=== PATIENT | male | born 2000 | race Caucasian/White ===

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

== ENCOUNTER 2022-05-06 22:36 | Emergency (ER) | payer OTHER, SELFPAY ==
[2022-05-06] VITALS (12 sets, daily range): BP systolic 138–149; BP diastolic 70–82; PULSE 85–113; RESP 12–23; TEMP 37.6; O2SAT 97–100
--- NOTE | 2022-05-06 22:45 | DI.CT_ITS ---
Exam(s) CT CHEST/ABD/PEL W EXAM: CT CHEST/ABD/PEL W CLINICAL HISTORY: trauma, sledding accident, firm abdomen, back pain. TECHNIQUE: Imaging Protocol: Axial computed tomography images with coronal and sagittal reformatted images were created and reviewed CONTRAST MATERIAL: Intravenous: Omnipaque 350 Contrast volume:100 ml Oral: None COMPARISON: No exams were available for comparison FINDINGS: CHEST: LUNGS: No evidence of lung contusion or pneumothorax nor pleural effusion. No confluent infiltrates. No incidental nodules.. MEDIASTINUM: No evidence of sternal fracture nor mediastinal hematoma. There is no hilar nor mediast inal adenopathy. Visualized thyroid unremarkable. CARDIAC: Heart size is normal. There is no pericardial effusion.Caliber of the thoracic aorta is wit hin normal limits. No evidence of aortic trauma nor dissection. OSSEOUS: No significant osseous lesions.No fractures of the sternum and ribs. No clavicle fractures. . ABDOMEN: There is a wedge compression fracture of L1. See separate lumbar spine CT report No prominent paraspinal hematoma evident. No prominent canal stenosis evident this level. There is no ascites. No evidence of mesenteric nor bowel wall hematoma. LIVER: There are no focal hepatic lesions nor dilatation of intrahepatic ducts. No a patent lacerati on. GALLBLADDER/BILIARY: No obvious gallbladder pathology. CBD is not dilated. PANCREAS: No evidence of pancreatic mass nor dilatation of the pancreatic duct. SPLEEN: Spleen is not enlarged. There are no intrasplenic lesions. No splenic laceration. Splenic a nd portal veins are patent. ADRENALS: There are no significant adrenal masses. KIDNEYS: No evidence of renal laceration nor subcapsular hematoma nor other significant focal finding s in either kidney.. ABDOMINAL AORTA: Appears unremarkable. Normal size. No evidence of trauma. No dissection. No athe rosclerotic involvement. Aortoiliac segments and common femoral arteries are patent. LYMPH NODES: There is no retroperitoneal nor paraaortic adenopathy. ABDOMINAL WALL: No evidence of significant anterior abdominal wall nor inguinal hernia. GI: There is no evidence of bowel obstruction.No evidence of bowel wall hematoma. PELVIS: LYMPH NODES: There is no intrapelvic nor inguinal adenopathy. GI: No evidence of appendicitis.No evidence of sigmoid diverticulitis. URINARY BLADDER: Intact. Mildly distended. No extravasation. REPRODUCTIVE: Prostate unremarkable. OSSEOUS: Wedge compression fracture of L1 as described on the dedicated CT spine report. There does not appear to be tight spinal canal stenosis at this level. No other fractures identified. IMPRESSION: 1. L1 wedge compression fracture. See separate report CT lumbar spine. 2. No other significant trauma sequelae in the chest, abdomen, and pelvis. RADIATION DOSE DELIVERED: 1084.2 mGy.cm Total DLP DATA REPOSITORY: All CT scans at this facility are submitted to the National Radiology Data Registry (NRDR) Dose Index Registry (DIR) with the [employer] ([employer]). RADIATION OPTIMIZATION: All CT scans at this facility use at least one of these dose optimization te chniques: automated exposure control; mA and/or kV adjustment per patient size (includes targeted exa ms where dose is matched to clinical indication); or iterative reconstruction.
--- NOTE | 2022-05-06 22:45 | DI.CT_ITS ---
Exam(s) CT CERVICAL SPINE WO EXAM: CT CERVICAL SPINE WO CLINICAL HISTORY: trauma, low back pain. TECHNIQUE: Imaging Protocol: Axial computed tomography images with coronal and sagittal reformatted images were created and reviewed COMPARISON: No exams were available for comparison FINDINGS: CERVICAL SPINE: There is no evidence of fracture nor listhesis. No significant prevertebral soft tissue swelling. There is no significant facet joint malalignment. No significant osseous lesions evident. IMPRESSION: No evidence of cervical spine fracture, malalignment, nor acute compromise of the cervical spinal can al. RADIATION DOSE DELIVERED: 303.9mGy.cm Total DLP DATA REPOSITORY: All CT scans at this facility are submitted to the National Radiology Data Registry (NRDR) Dose Index Registry (DIR) with the [employer] ([employer]). RADIATION OPTIMIZATION: All CT scans at this facility use at least one of these dose optimization te chniques: automated exposure control; mA and/or kV adjustment per patient size (includes targeted exa ms where dose is matched to clinical indication); or iterative reconstruction.
--- NOTE | 2022-05-06 22:52 | DI.CT_ITS ---
Exam(s) CT THORACIC LUMBAR SPINE REC EXAM: CT THORACIC LUMBAR SPINE REC CLINICAL HISTORY: trauma, low thoracic and lumbar ttp TECHNIQUE: COMPARISON: CT CT CHEST/ABD/PEL W from 05/06/2022 FINDINGS: THORACIC SPINAL COLUMN: There are no fractures of the thoracic vertebrae. No prominent disc space na rrowing nor listhesis. No facet malalignment. No osseous lesions. LUMBOSACRAL SPINAL COLUMN: There is an acute appearing wedge compression fracture of L1 with thumb ap proximately 30 percent height loss. Fracture does not extend into the pedicles and posterior osseous elements. There is mild retropulsion of the posterior superior cortex by approximately 2 millimeter s. No prominent spinal canal compromise. No facet malalignment. No other vertebral fractures. No listhesis. Disc spaces unremarkable. IMPRESSION: 1. Wedge compression fracture of L1 is described above. Mild retropulsion of the posterior cortex, a pproximately 2 millimeters. 2. No fractures in the thoracic spinal column vertebrae
--- NOTE | 2022-05-06 22:59 | ED.GENADUL_ITS ---
Discharge Plan Discharge Details Chief Complaint: Trauma Primary Care Provider: Leticia Callejas ED Provider: Jaspreet Horton Home Meds and New Rx's Prescriptions: No Action albuterol sulfate [Ventolin HFA] 8 GM HFA aerosol inhaler 200 puff Inhalation Q4H PRN PRN epinephrine [EpiPen 2-Byorn] 0.3 mg/0.3 mL Auto-Injector 0.3 mg IM ONCE epinephrine 0.3 mg/0.3 mL auto-injector 0.3 ml IM ONCE PRN (Reason: anaphylaxis) Qty: 2 0RF Rx Instructions: as a single dose; may repeat once Medical Decision Making 22-year-old male for sling accident with what sounds like direct trauma to low midline spine. Patient mentating well, he not lose consciousness and has no headache. Patient is hemodynamically stable. Airway intact. He has midline focal tenderness low thoracic and upper lumbar spine. Concern for fracture of the spine. Patient also with a rigid and somewhat tender abdomen. Consider intra- abdominal surgical process. Plan to obtain CT imaging of the cervical, thoracic and lumbar spine. Also CT of the chest abdomen pelvis to assess for traumatic injury. HPI General Mode of arrival: ambulatory . Date/Time Provider Initiated Documentation: 05/06/22 22:52 . Limitations to Documentation: no limitations . Information obtained by: patient . HPI Narrative: 22-year-old male presents with chief complaint of low back pain. Patient notes he was on a sled and fell off and landed on a ice mound. Pain is severe and localized to midline back. Pain worse with certain positions. No associated numbness or weakness. Patient denies chest pain. He does note some abdominal pain. No bowel or bladder dysfunction. Related Data Home Medications Medication Instructions Recorded Confirmed albuterol sulfate 90 mcg/actuation 200 puff inhalation Q4H PRN PRN 01/22/17 05/06/22 aerosol inhaler (Ventolin HFA) epinephrine 0.3 mg/0.3 mL 0.3 ml IM ONCE PRN anaphylaxis #2 12/24/19 05/06/22 injection, auto-injector ea epinephrine 0.3 mg/0.3 mL 0.3 mg IM ONCE 12/24/19 05/06/22 injection, auto-injector (EpiPen 2-Byron) Previous Rx's Medication Instructions Recorded epinephrine 0.3 mg/0.3 mL 0.3 ml IM ONCE PRN anaphylaxis #2 12/24/19 injection, auto-injector ea Allergies Allergy/AdvReac Type Severity Reaction Status Date / Time tree nut Allergy Unverified 05/06/22 22:54 General Stated Complaint: Trauma JESSICA: 2 PFSH All Active Problems Anterior open bite (Acute) Maxillary hypoplasia (Acute) Medical History No significant past medical history Surgical History H/O wisdom tooth extraction Social History Smoking/Tobacco Use Status: Never Smoking risk assessment performed?: Yes Alcohol Intake: never Drug use: Socially Substance use type: marijuana Do you feel safe at home: Yes Do you feel safe in your relationship?: Yes Exam Const General: cooperative HENMT Head: normocephalic and atraumatic Mouth: moist mucous membranes Eyes EOM: EOM intact bilaterally Neck Neck: trachea midline and supple Resp Auscultation: clear to auscultation bilaterally, no rales, no rhonchi and no wheezes Cardio Rate: regular rate and not tachycardic Rhythm: regular rhythm GI Palpation: firm, no guarding, no masses and tender in the LLQ Back/Spine/Pelvis Cervical Spine: No cervical spinal tenderness and No step off deformity Thoracic/Lumbar Spine: thoracic spinal tenderness (low) and lumbar spinal tenderness Skin General skin exam: no rashes or lesions noted Neuro General: patient alert, patient awake, patient oriented x3 and tone normal Cognition: normal cognition Speech: speech normal Motor: strength 5/5 throughout Sensory Exam: no sensory deficits noted Other: no saddle anesth Extrem General: no edema Psych Appearance: grossly normal Mental Status: mental status grossly normal Speech and Movement: speech and movement normal Course Vital Signs Vital signs: Vital Signs Temperature 37.6 C H 05/06/22 22:46 Pulse 93 H 05/06/22 22:46 Respiratory Rate 16 05/06/22 22:46 Blood Pressure 149/82 H 05/06/22 22:46 Pulse Oximetry 100 05/06/22 22:46 Temperature 37.6 C H 05/06/22 22:46 Temperature Source Temporal Artery Scan 05/06/22 22:46 Pulse 93 H 05/06/22 22:46 Respiratory Rate 16 05/06/22 22:46 Respiratory Effort Non-Labored 05/06/22 22:57 Respiratory Depth Normal 05/06/22 22:57 Blood Pressure 149/82 H 05/06/22 22:46 Blood Pressure Position Supine 05/06/22 22:46 Pulse Oximetry 100 05/06/22 22:46 Oxygen Delivery Method Room Air 05/06/22 22:46 Oxygen Flow Rate 0 05/06/22 22:46 Pain Level 6 05/06/22 22:46
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
[2022-05-06] MEDS: Omnipaque 350 MG/ML 100 ML BTL IJ (23:51)
[2022-05-06] MEDS: Normal Saline - Diluent 50 ML VIAL IJ (23:52)
--- NOTE | 2022-05-06 23:54 | DI.VRAD_ITS ---
PROCEDURE INFORMATION: Exam: CT Cervical Spine Without Contrast Exam date and time: 05/06/2022 11:40 PM Age: 22 years old Clinical indication: Injury or trauma; Other: Trauma, low back pain; Blunt trauma and concussion/head injury; Prior surgery; Surgery date: 6+ months; Surgery type: Jaw surgery last year TECHNIQUE: Imaging protocol: Computed tomography of the cervical spine without contrast. Radiation optimization: All CT scans at this facility use at least one of these dose optimization techniques: automated exposure control; mA and/or kV adjustment per patient size (includes targeted exams where dose is matched to clinical indication); or iterative reconstruction. COMPARISON: No relevant prior studies available. FINDINGS: Bones/joints: No acute fracture. Normal alignment. No significant disc protrusion. No severe spinal canal stenosis. Lungs: Minimal patchy airspace opacity noted in the right upper lobe. Soft tissues: Unremarkable. IMPRESSION: No evidence for acute posttraumatic abnormality. Dictated and Authenticated by: Danielle Ro MD. Ordering:BUD Vogel MD
[2022-05-07] VITALS (14 sets, daily range): BP systolic 108–136; BP diastolic 68–73; PULSE 62–98; RESP 15–29; TEMP 36.8; O2SAT 96–100
[2022-05-07] MEDS: Normal Saline 500 ML IV (00:10)
[2022-05-07] MEDS: ACETAMINOPHEN 1,000 MG/100 ML BTL 400 MG IVPB (00:18)
--- NOTE | 2022-05-07 00:19 | DI.VRAD_ITS ---
Addendum created by Danielle Ro MD on 05/07/2022 12:20:33 AM EST: I discussed case findings with Dr Fitch 05/07/2022 12:19 AM EST. Initial report created on 05/07/2022 12:17:24 AM EST: PROCEDURE INFORMATION: Exam: CT Chest With Contrast; Diagnostic Exam date and time: 05/06/2022 11:42 PM Age: 22 years old Clinical indication: Injury or trauma; Other: Trauma, low back pain; Generalized; Blunt trauma (contusions or hematomas) TECHNIQUE: Imaging protocol: Diagnostic computed tomography of the chest with contrast. Radiation optimization: All CT scans at this facility use at least one of these dose optimization techniques: automated exposure control; mA and/or kV adjustment per patient size (includes targeted exams where dose is matched to clinical indication); or iterative reconstruction. Contrast material: OMNI 350; Contrast volume: 100 ml; Contrast route: INTRAVENOUS (IV); COMPARISON: CT CERVICAL SPINE WO 05/06/2022 11:40 PM FINDINGS: Lungs: Unremarkable. No consolidation. No masses. Pleural spaces: Unremarkable. No pneumothorax. No pleural effusion. Heart: Unremarkable. No cardiomegaly. No pericardial effusion. Lymph nodes: Unremarkable. No enlarged lymph nodes. Vasculature: Unremarkable. No aortic aneurysm. Bones/joints: Unremarkable. No acute fracture. Soft tissues: Unremarkable. IMPRESSION: No evidence for acute posttraumatic abnormality in the chest. PROCEDURE INFORMATION: Exam: CT Abdomen And Pelvis With Contrast Exam date and time: 05/06/2022 11:42 PM Age: 22 years old Clinical indication: Injury or trauma; Other: Trauma, low back pain; Generalized; Blunt trauma (contusions or hematomas) TECHNIQUE: Imaging protocol: Computed tomography of the abdomen and pelvis with contrast. Radiation optimization: All CT scans at this facility use at least one of these dose optimization techniques: automated exposure control; mA and/or kV adjustment per patient size (includes targeted exams where dose is matched to clinical indication); or iterative reconstruction. Contrast material: OMNI 350; Contrast volume: 100 ml; Contrast route: INTRAVENOUS (IV); COMPARISON: No relevant prior studies available. FINDINGS: Liver: Normal. No mass. Gallbladder and bile ducts: Normal. No calcified stones. No ductal dilation. Pancreas: Normal. No ductal dilation. Spleen: Normal. No splenomegaly. Adrenal glands: Normal. No mass. Kidneys and ureters: Normal. No hydronephrosis. Stomach and bowel: Unremarkable. No obstruction. No mucosal thickening. Appendix: No evidence of appendicitis. Intraperitoneal space: Unremarkable. No free air. No significant fluid collection. Vasculature: Unremarkable. No abdominal aortic aneurysm. Lymph nodes: Unremarkable. No enlarged lymph nodes. Urinary bladder: Unremarkable as visualized. Reproductive: Unremarkable as visualized. Bones/joints: There is an acute appearing L1 compression fracture with minimal retropulsion. There is approximately 30% loss of vertebral body height. No stenosis. No additional acute fractures seen. Soft tissues: Unremarkable. IMPRESSION: Acute appearing L1 compression fracture. No stenosis. Dictated and Authenticated by: Danielle Ro MD. Ordering:BUD Vogel MD
[2022-05-07] MEDS: HYDROmorphone 2 MG/ML SYR 0.5 MG IVP (00:20)
--- NOTE | 2022-05-07 00:20 | DI.VRAD_ITS ---
Addendum created by Danielle Ro MD on 05/07/2022 12:21:06 AM EST: I discussed case findings with Dr Fitch 05/07/2022 12:20 AM EST. Initial report created on 05/07/2022 12:19:35 AM EST: PROCEDURE INFORMATION: Exam: CT Thoracic Spine Without Contrast Exam date and time: 05/06/2022 11:42 PM Age: 22 years old Clinical indication: Injury or trauma; Other: Trauma, low back pain; Blunt trauma (contusions or hematomas) TECHNIQUE: Imaging protocol: Computed tomography of the thoracic spine without contrast. Radiation optimization: All CT scans at this facility use at least one of these dose optimization techniques: automated exposure control; mA and/or kV adjustment per patient size (includes targeted exams where dose is matched to clinical indication); or iterative reconstruction. COMPARISON: CT CERVICAL SPINE WO 05/06/2022 11:40 PM FINDINGS: Bones/joints: No acute fracture. Normal alignment. No significant disc protrusion. No severe spinal canal stenosis. Soft tissues: Unremarkable. IMPRESSION: No evidence for acute posttraumatic abnormality. PROCEDURE INFORMATION: Exam: CT Lumbar Spine Without Contrast Exam date and time: 05/06/2022 11:42 PM Age: 22 years old Clinical indication: Injury or trauma; Other: Trauma, low back pain; Blunt trauma (contusions or hematomas) TECHNIQUE: Imaging protocol: Computed tomography of the lumbar spine without contrast. Radiation optimization: All CT scans at this facility use at least one of these dose optimization techniques: automated exposure control; mA and/or kV adjustment per patient size (includes targeted exams where dose is matched to clinical indication); or iterative reconstruction. COMPARISON: No relevant prior studies available. FINDINGS: Bones/joints: No acute fracture. Normal alignment. No significant disc protrusion. No severe spinal canal stenosis. Soft tissues: Unremarkable. IMPRESSION: Acute appearing wedge-shaped L1 compression fracture. No stenosis. Dictated and Authenticated by: Danielle Ro MD. Ordering:BUD Vogel MD
[2022-05-07] MEDS: Ondansetron 4 MG/2 ML VIAL IVP (00:21)
--- NOTE | 2022-05-07 00:45 | DI.RAD_ITS ---
Exam(s) XR LUMBAR SPINE COMPLETE EXAM: XR LUMBAR SPINE COMPLETE CLINICAL HISTORY: AP/Lateral/Oblique - STANDING XRAYS ONLY. TECHNIQUE: 2D digital imaging was performed. COMPARISON: No exams were available for comparison FINDINGS: Four views: There is compression fracture of L1, wedge-shaped, with approximately 50 percent height loss. The canales perior aspect of the posterior cortex of this vertebral body is posteriorly retropulsed approximately 2 millimeters. There are no other fractures. No listhesis. Disc space is not narrowed. Facet joints unremarkable. SI joints unremarkable. Contrast is seen in the kidneys ureters and bladder. No hydronephrosis. IMPRESSION: Acute compression fracture of L1 with approximately 50 percent height loss and mild posterior cortex retropulsion. DATA REPOSITORY: RADIATION DOSE DELIVERED:
[2022-05-07 01:41] LABS: Abs Immature Grans 0.11 10^3/uL (0.0-0.06); Absolute Basophil Count 0.05 10^3/uL (0.0-0.2); Absolute Eosinophil Count 0.38 10^3/uL (0.0-0.7); Absolute Monocyte Count 1.01 10^3/uL (0.1-0.8); Basophils % 0.3; Eosinophils % 2.3; HCT 40.1 % (40.0-50.0); HGB 13.9 g/dL (13.5-17.5); Immature Grans % 0.7; MCH 30.2 pg (27.0-33.0); MCHC 34.7 % (32.0-36.0); MCV 87 fL (80-95); MPV 10.3 fL (8.0-11.0); Monocytes % 6.1; Neutrophils % 75.6; Platelet Count 202 10^3/uL (130-400); RDW 11.8 % (11.8-14.1); RDW-SD 37.8 fL; WBC 16.57 10^3/uL (4.4-10.8)
[2022-05-07 01:42] LABS: Absolute Lymphocyte Count 2.49 10^3/uL (1.2-3.4); Absolute Neutrophil Count 12.53 10^3/uL (1.2-6.7)
--- NOTE | 2022-05-07 01:55 | DI.VRAD_ITS ---
PROCEDURE INFORMATION: Exam: XR Lumbosacral Spine Exam date and time: 05/07/2022 12:57 AM Age: 22 years old Clinical indication: Abnormal findings; Abnormal xray or scan of thoracolumbar spine; Additional info: To assess stability of l1 fracture TECHNIQUE: Imaging protocol: Radiologic exam of the lumbosacral spine. Views: 4 or 5 views. COMPARISON: CT THORACIC LUMBAR SPINE REC 05/06/2022 11:42 PM FINDINGS: Bones/joints: A wedge-shaped compression fracture is seen within the L1 vertebral body resulting in 50-60% vertebral body height loss. Minimal, 1-2 mm, retropulsion. Otherwise, no additional fracture is seen within the lumbar spine. Soft tissues: Unremarkable. IMPRESSION: Acute compression fracture within the L1 vertebral body resulting in 50-60% vertebral body height loss and minimal, 1-2 mm, retropulsion. Dictated and Authenticated by: Tari Beach MD. Ordering:JESSICA Snyder MD
[2022-05-07 01:57] LABS: ALT 18 U/L (16-63); AST 24 U/L (15-37); Albumin 4.1 g/dL (3.4-5.0); Alkaline Phosphatase 66 U/L (46-116); Anion Gap 7.7 mmol/L (3-11); BUN 12 mg/dL (7-18); Bilirubin, Total 0.5 mg/dL (0.2-1.0); CO2 27.3 mmol/L (21.0-32.0); CREATININE 1.1 mg/dL (0.70-1.30); Calcium 8.5 mg/dL (8.5-10.1); Chloride 104 mmol/L (98-107); Estimated GFR 98.56 (mL/min/1.73m2); Glucose 104 mg/dL (74-106); Potassium 3.9 mmol/L (3.5-5.1); Sodium 139 mmol/L (136-145); Total Protein 7.2 g/dL (6.4-8.2)
[2022-05-07] MEDS: Ketorolac 30 MG/ML VIAL IVP (01:59)
[2022-05-07] MEDS: Ondansetron O.D.T. 4 MG TABEF, 3 TABS/BTL 12 MG (07:04)
--- NOTE | 2022-05-07 09:33 | PDOC.ERCMACT ---
- If Service Date Differs Date of service: 05/07/22 Time of Service: 09:33 Care Management Activity Note Sj is seen in the ED for an L1 compression fracture. At the request of ED provider, CM coordinates a referral to [facility] Neurosurgery to assist Sj in obtaining an appointment for further evaluation and treatment. A referral has also been made to ortho by the ED.
== END 2022-05-07 07:10 | disposition home or self-care (01) ==
PROVIDERS: Student in an Organized Health Care Education/Training Program; Emergency Provider Physician Assistant; PCP Family Medicine
DX: S32.019A Unspecified fracture of first lumbar vertebra, initial encounter for closed fracture (principal); W00.0XXA Fall on same level due to ice and snow, initial encounter; Y92.828 Other wilderness area as the place of occurrence of the external cause; Y93.23 Activity, snow (alpine) (downhill) skiing, snowboarding, sledding, tobogganing and snow tubing
CPT/HCPCS: 74177; 80053; 86850; 86900; 86901; 96361; 96365; 96375; 99285; 71260; 72110; 72125; 85025; 99284; J0131; J1170; J1885; J2405; J3490

== ENCOUNTER 2022-06-11 02:05 | Outpatient (CLI) | payer OTHER, SELFPAY ==
--- NOTE | 2022-06-11 | DI.RAD_ITS ---
Exam(s) XR LUMBAR SPINE COMPLETE EXAM: XR LUMBAR SPINE COMPLETE CLINICAL HISTORY: CLOSED COMPRESSION FX L1 VERTEBRA S32.010A FOLLOW UP. TECHNIQUE: 2D digital imaging was performed. Five views. COMPARISON: CR XR LUMBAR SPINE 2 OR 3 VIEWS (GENERIC) from 05/12/2022 FINDINGS: BONES: There has been no change in the L1 compression fracture. The remaining vertebral body heights are maintained. No facet hypertrophy identified. DISKS: Intervertebral disc spaces are maintained. ALIGNMENT: Lumbar spinal alignment is within normal limits. SOFT TISSUE: Normal. IMPRESSION: Stable L1 compression fracture. DATA REPOSITORY: RADIATION DOSE DELIVERED:
== END 2022-06-11 02:25 ==
LOC: DI 02:05
PROVIDERS: PCP Family Medicine; Visit Provider Nurse Practitioner
DX: S32.010D Wedge compression fracture of first lumbar vertebra, subsequent encounter for fracture with routine healing (principal); X58.XXXD Exposure to other specified factors, subsequent encounter
CPT/HCPCS: 72110

== ENCOUNTER 2022-07-15 02:05 | Outpatient (CLI) | payer OTHER, SELFPAY ==
--- NOTE | 2022-07-15 | DI.RAD_ITS ---
Exam(s) XR LUMBAR SPINE AP, LAT EXAM: XR LUMBAR SPINE AP, LAT CLINICAL HISTORY: F/U CLOSED COMP FX L1,S32.010A,EVALUATE FOR CHANGE. TECHNIQUE: 2D digital imaging was performed. Five views. COMPARISON: CR XR LUMBAR SPINE COMPLETE from 06/11/2022 FINDINGS: There has been no change in the degree compression of the L1 vertebral body. No new fractures are se en. Disc spaces are maintained. IMPRESSION: Stable L1 compression fracture. DATA REPOSITORY: RADIATION DOSE DELIVERED:
== END 2022-07-15 02:25 ==
LOC: DI 02:05
PROVIDERS: PCP Family Medicine; Visit Provider Nurse Practitioner
DX: S32.010D Wedge compression fracture of first lumbar vertebra, subsequent encounter for fracture with routine healing (principal); X58.XXXD Exposure to other specified factors, subsequent encounter
CPT/HCPCS: 72100

== ENCOUNTER 2022-08-13 12:52 | Outpatient (REF) | payer OTHER, SELFPAY ==
[2022-08-13 14:19] LABS: Source Nasal/Nares
[2022-08-13 16:27] LABS: COVID-19 PCR Negative (Negative)
== END 2022-08-13 12:53 | disposition home or self-care (01) ==
LOC: LBN 12:52
PROVIDERS: PCP Family Medicine; Visit Provider Physician Assistant Medical
DX: J02.9 Acute pharyngitis, unspecified (principal); Z20.822 Contact with and (suspected) exposure to COVID-19; R05.8 Other specified cough
CPT/HCPCS: 87635; 87070

== ENCOUNTER 2023-02-02 10:02 | Emergency (ER) | payer OTHER, SELFPAY ==
[2023-02-02] VITALS (55 sets, daily range): BP systolic 94–143; BP diastolic 43–112; PULSE 88–124; RESP 8–26; TEMP 37.2; O2SAT 97–100
[2023-02-02] MEDS: Lactated Ringers 1,000 ML 1000 ML IV (11:09)
[2023-02-02 11:10] LABS: Abs Immature Grans 0.05 10^3/uL (0.0-0.06); Absolute Basophil Count 0.03 10^3/uL (0.0-0.2); Absolute Eosinophil Count 0.04 10^3/uL (0.0-0.7); Absolute Lymphocyte Count 0.25 10^3/uL (1.2-3.4); Absolute Monocyte Count 1.31 10^3/uL (0.1-0.8); Absolute Neutrophil Count 8.81 10^3/uL (1.2-6.7); Basophils % 0.3; Eosinophils % 0.4; HCT 39.8 % (40.0-50.0); HGB 14.2 g/dL (13.5-17.5); Immature Grans % 0.5; Lymphocytes % 2.4; MCHC 35.7 % (32.0-36.0); MCV 84 fL (80-95); MPV 10.4 fL (8.0-11.0); Monocytes % 12.5; Neutrophils % 83.9; Platelet Count 164 10^3/uL (130-400); RBC 4.73 10^6/uL (4.36-5.78); RDW 11.4 % (11.8-14.1); WBC 10.49 10^3/uL (4.4-10.8)
[2023-02-02] MEDS: Ondansetron 4 MG/2 ML VIAL IVP (11:10)
--- NOTE | 2023-02-02 11:12 | W.ED.GENAD ---
Discharge Plan Discharge Details Chief Complaint: Nausea/Vomit/Diar Primary Care Provider: Leticia Callejas ED Provider: Jaspreet Horton Home Meds and New Rx's Prescriptions: No Action fluticasone propionate [Flonase Allergy Relief] 50 mcg/actuation spray,suspension 2 spray intranasal DAILY Qty: 16 12RF Rx Instructions: administer into each nostril albuterol sulfate [Ventolin HFA] 8 GM HFA aerosol inhaler 200 puff Inhalation Q4H PRN PRN epinephrine [EpiPen 2-Byron] 0.3 mg/0.3 mL Auto-Injector 0.3 mg IM ONCE Medical Decision Making 1114?- 22-year-old male here with nausea, vomiting and loose stools since onset this morning. Patient is tachycardic and appears dehydrated. Suspect gastroenteritis, consider food poisoning related to shellfish. Plan to rehydrate with IV fluids. I will give Zofran IV for nausea. Consider electrolyte abnormalities and will check labs. [id number] -- Labs reviewed and significant hypomagnesemia and hypokalemia noted. Patient was given magnesium IV and and receiving potassium IV. COVID test is positive. Patient has no high risk conditions -Paxlovid not indicated. Patient feeling much better. Tolerating p.o. Lab Data Lab results reviewed: Yes I reviewed the patient's lab results. Labs: Laboratory Tests Range/Units 02/02/23 02/02/23 02/02/23 10:27 10:27 11:07 WBC (4.4-10.8) 10^3/uL 10.49 RBC (4.36-5.78) 10^6/uL 4.73 Hgb (13.5-17.5) g/dL 14.2 Hct (40.0-50.0) % 39.8 L MCV (80-95) fL 84 MCH (27.0-33.0) pg 30.0 MCHC (32.0-36.0) % 35.7 RDW (11.8-14.1) % 11.4 L Plt Count (130-400) 10^3/uL 164 MPV (8.0-11.0) fL 10.4 Immature Gran % 0.5 Neutrophils % 83.9 Lymphocytes % 2.4 Monocytes % 12.5 Eosinophils % 0.4 Basophils % 0.3 Nucleated RBC % (0.0-0.3) % 0.0 Absolute Neutrophils (1.2-6.7) 10^3/uL 8.81 H Absolute Lymphocytes (1.2-3.4) 10^3/uL 0.25 L Absolute Monocytes (0.1-0.8) 10^3/uL 1.31 H Absolute Eosinophils (0.0-0.7) 10^3/uL 0.04 Absolute Basophils (0.0-0.2) 10^3/uL 0.03 Sodium (136-145) mmol/L 135 L Potassium (3.5-5.1) mmol/L 3.0 L Chloride (98-107) mmol/L 100 Carbon Dioxide (21.0-32.0) mmol/L 20.6 L Anion Gap (3-11) mmol/L 14.4 H BUN (7-18) mg/dL 13 Creatinine (0.70-1.30) mg/dL 1.1 Est GFR (CKD-EPI 2020) (mL/min/1.73m2) 98.56 Glucose (74-106) mg/dL 148 H Calcium (8.5-10.1) mg/dL 9.5 Magnesium (1.8-2.4) mg/dL 1.1 L Total Bilirubin (0.2-1.0) mg/dL 1.2 H AST (15-37) U/L 22 ALT (16-63) U/L 16 Alkaline Phosphatase (46-116) U/L 56 Total Protein (6.4-8.2) g/dL 7.4 Albumin (3.4-5.0) g/dL 4.5 Lipase (16-77) U/L 17 Cancelled COVID-19 Source SARS-CoV-2 (PCR) (Negative) Influenza Type A (PCR) (Negative) Influenza Type B (PCR) (Negative) RSV (PCR) (Negative) Range/Units 02/02/23 11:25 WBC (4.4-10.8) 10^3/uL RBC (4.36-5.78) 10^6/uL Hgb (13.5-17.5) g/dL Hct (40.0-50.0) % MCV (80-95) fL MCH (27.0-33.0) pg MCHC (32.0-36.0) % RDW (11.8-14.1) % Plt Count (130-400) 10^3/uL MPV (8.0-11.0) fL Immature Gran % Neutrophils % Lymphocytes % Monocytes % Eosinophils % Basophils % Nucleated RBC % (0.0-0.3) % Absolute Neutrophils (1.2-6.7) 10^3/uL Absolute Lymphocytes (1.2-3.4) 10^3/uL Absolute Monocytes (0.1-0.8) 10^3/uL Absolute Eosinophils (0.0-0.7) 10^3/uL Absolute Basophils (0.0-0.2) 10^3/uL Sodium (136-145) mmol/L Potassium (3.5-5.1) mmol/L Chloride (98-107) mmol/L Carbon Dioxide (21.0-32.0) mmol/L Anion Gap (3-11) mmol/L BUN (7-18) mg/dL Creatinine (0.70-1.30) mg/dL Est GFR (CKD-EPI 2020) (mL/min/1.73m2) Glucose (74-106) mg/dL Calcium (8.5-10.1) mg/dL Magnesium (1.8-2.4) mg/dL Total Bilirubin (0.2-1.0) mg/dL AST (15-37) U/L ALT (16-63) U/L Alkaline Phosphatase (46-116) U/L Total Protein (6.4-8.2) g/dL Albumin (3.4-5.0) g/dL Lipase (16-77) U/L COVID-19 Source Nasopharynx SARS-CoV-2 (PCR) (Negative) Positive A Influenza Type A (PCR) (Negative) Negative Influenza Type B (PCR) (Negative) Negative RSV (PCR) (Negative) Negative HPI General Mode of arrival: ambulatory. Date/Time Provider Initiated Documentation: 02/02/23 10:52. Limitations to Documentation: no limitations. Information obtained by: patient. HPI Narrative: 22-year-old male presents with chief complaint of vomiting. Patient notes nausea and vomiting that started this morning and has persisted. Not able to tolerate any p.o. intake today. Patient states last night he was feeling well. He did have steamed clams and salmon for dinner. Patient has associated loose stool. Some abdominal cramping. Patient also notes fever this morning. Related Data Home Medications Medication Instructions Recorded Confirmed albuterol sulfate 90 mcg/actuation 200 puff inhalation Q4H PRN PRN 01/22/17 02/02/23 aerosol inhaler (Ventolin HFA) epinephrine 0.3 mg/0.3 mL 0.3 mg IM ONCE 12/24/19 02/02/23 injection, auto-injector (EpiPen 2-Byron) fluticasone propionate 50 2 spray intranasal DAILY #16 grams 12/02/22 02/02/23 mcg/actuation nasal spray,suspension (Flonase Allergy Relief) Previous Rx's Medication Instructions Recorded fluticasone propionate 50 2 spray intranasal DAILY #16 grams 12/02/22 mcg/actuation nasal spray,suspension (Flonase Allergy Relief) Allergies Allergy/AdvReac Type Severity Reaction Status Date / Time tree nut Allergy Severe Anaphylaxis Unverified 02/02/23 11:36 montelukast Allergy Intermediate Verified 02/02/23 11:36 amoxicillin Allergy Mild Verified 02/02/23 11:36 dog dander Allergy Mild Itching Verified 02/02/23 11:36 nutmeg Allergy Mild Uncoded 02/02/23 11:36 cats AdvReac Mild Uncoded 02/02/23 11:36 General Stated Complaint: Nausea/Vomit/Diar JESSICA: 3 Review of Systems All systems reviewed & are unremarkable except as noted in HPI and below Constitutional Constitutional: Reports chills and Reports fever(s) Respiratory Respiratory: Denies cough Gastrointestinal Gastrointestinal: Reports as per HPI PFSH All Active Problems Deviated nasal septum (Acute) Nasal obstruction (Acute) Hypertrophy of inferior nasal turbinate (Acute) Anterior open bite (Acute) Maxillary hypoplasia (Acute) Medical History Acquired deviated nasal septum Allergic rhinitis Allergy to walnuts Asthma, mild intermittent History of tibial fracture History of traumatic fracture of vertebra Jaw deformity Knee pain, right No significant past medical history Pain, joint, shoulder, right Surgical History H/O wisdom tooth extraction Social History Smoking/Tobacco Use Status: Never Smoking risk assessment performed?: Yes Alcohol Intake: never Drug use: Socially Substance use type: marijuana Do you feel safe at home: Yes Do you feel safe in your relationship?: Yes Exam Const General: cooperative and no acute distress HENMT Head: normocephalic Mouth: mucous membranes dry Eyes Conjunctivae: normal conjunctivae Sclera: normal sclerae Neck Neck: trachea midline and supple Resp Auscultation: clear to auscultation bilaterally, no rales, no rhonchi and no wheezes Cardio Rate: tachycardic Rhythm: regular rhythm GI Palpation: soft, not firm, no guarding, no masses, not rigid and nontender Skin General skin exam: no rashes or lesions noted Neuro General: patient alert, patient awake, patient oriented x3 and tone normal Extrem General: no edema Psych Appearance: grossly normal Mental Status: mental status grossly normal Course Vital Signs Vital signs: Vital Signs Temperature 37.2 C 02/02/23 10:10 Pulse 115 H 02/02/23 10:10 Respiratory Rate 18 02/02/23 10:10 Blood Pressure 113/70 02/02/23 10:10 Pulse Oximetry 100 02/02/23 10:10 Temperature 37.2 C 02/02/23 10:10 Temperature Source Oral 02/02/23 10:10 Pulse 115 H 02/02/23 10:10 Respiratory Rate 18 02/02/23 10:10 Respiratory Effort Short of Breath 02/02/23 10:31 Blood Pressure 113/70 02/02/23 10:10 Blood Pressure Position Sitting 02/02/23 10:10 Pulse Oximetry 100 02/02/23 10:10 Oxygen Delivery Method Room Air 02/02/23 10:10 Oxygen Flow Rate 0 02/02/23 10:10 Lab/Test Results Lab/Test Results: Laboratory Tests Range/Units 02/02/23 10:27 WBC (4.4-10.8) 10^3/uL 10.49 RBC (4.36-5.78) 10^6/uL 4.73 Hgb (13.5-17.5) g/dL 14.2 Hct (40.0-50.0) % 39.8 L MCV (80-95) fL 84 MCH (27.0-33.0) pg 30.0 MCHC (32.0-36.0) % 35.7 RDW (11.8-14.1) % 11.4 L Plt Count (130-400) 10^3/uL 164 MPV (8.0-11.0) fL 10.4 Immature Gran % 0.5 Neutrophils % 83.9 Lymphocytes % 2.4 Monocytes % 12.5 Eosinophils % 0.4 Basophils % 0.3 Nucleated RBC % (0.0-0.3) % 0.0 Absolute Neutrophils (1.2-6.7) 10^3/uL 8.81 H Absolute Lymphocytes (1.2-3.4) 10^3/uL 0.25 L Absolute Monocytes (0.1-0.8) 10^3/uL 1.31 H Absolute Eosinophils (0.0-0.7) 10^3/uL 0.04 Absolute Basophils (0.0-0.2) 10^3/uL 0.03
[2023-02-02 11:40] LABS: ALT 16 U/L (16-63); AST 22 U/L (15-37); Albumin 4.5 g/dL (3.4-5.0); Alkaline Phosphatase 56 U/L (46-116); Anion Gap 14.4 mmol/L (3-11); BUN 13 mg/dL (7-18); Bilirubin, Total 1.2 mg/dL (0.2-1.0); CO2 20.6 mmol/L (21.0-32.0); CREATININE 1.1 mg/dL (0.70-1.30); Calcium 9.5 mg/dL (8.5-10.1); Chloride 100 mmol/L (98-107); Estimated GFR 98.56 (mL/min/1.73m2); Glucose 148 mg/dL (74-106); Lipase 17 U/L (16-77); Magnesium 1.1 mg/dL (1.8-2.4); Sodium 135 mmol/L (136-145); Total Protein 7.4 g/dL (6.4-8.2)
[2023-02-02] MEDS: Ketorolac 15 MG/ML VIAL IVP (12:02)
[2023-02-02 12:09] LABS: Influenza A PCR Negative (Negative); Influenza B PCR Negative (Negative); RSV PCR Negative (Negative)
[2023-02-02] MEDS: MAGNESIUM SULFATE 2 GM/50 ML BAG IVPB (12:12)
[2023-02-02 12:15] LABS: COVID-19 PCR Positive (Negative); Source Nasopharynx
--- NOTE | 2023-02-02 13:12 | NUR.NOTE ---
Nursing Note: This nurse took over for this patient at this time. Pt denies pain, denies shortness of breath. Pt has magnesium going at this time and is on the monitor technician.
[2023-02-02] MEDS: POTASSIUM CHLORIDE 20 MEQ/100 ML BAG 50 MEQ IVPB (14:45)
--- NOTE | 2023-02-02 16:01 | ED.PROG_ITS ---
Date of service: 02/02/23 Time of Service: 16:01 Medical Decision Making Care assumed from provider (Jaspreet Horton MD) Please see their initial HPI, PE, and documentation. Discussed patient details and case and pending workup and disposition. Patient is hemodynamically stable, and alert and oriented. At the time of signout awaiting reevaluation after potassium infusion. Patient is a 22-year-old male here with nausea vomiting who is testing COVID-positive. He does have slightly low sodium at 135 potassium 3.0 magnesium 1.1. He has received 2 g of IV magnesium and IV potassium. Potassium finished, will discharge patient at this time. Discussed home care with patient he verbalized understanding. Medical Records Medical records reviewed: Yes I reviewed the patient's medical records. Lab Data Lab results reviewed: Yes I reviewed the patient's lab results. Labs: Laboratory Tests Range/Units 02/02/23 02/02/23 02/02/23 10:27 10:27 11:07 WBC (4.4-10.8) 10^3/uL 10.49 RBC (4.36-5.78) 10^6/uL 4.73 Hgb (13.5-17.5) g/dL 14.2 Hct (40.0-50.0) % 39.8 L MCV (80-95) fL 84 MCH (27.0-33.0) pg 30.0 MCHC (32.0-36.0) % 35.7 RDW (11.8-14.1) % 11.4 L Plt Count (130-400) 10^3/uL 164 MPV (8.0-11.0) fL 10.4 Immature Gran % 0.5 Neutrophils % 83.9 Lymphocytes % 2.4 Monocytes % 12.5 Eosinophils % 0.4 Basophils % 0.3 Nucleated RBC % (0.0-0.3) % 0.0 Absolute Neutrophils (1.2-6.7) 10^3/uL 8.81 H Absolute Lymphocytes (1.2-3.4) 10^3/uL 0.25 L Absolute Monocytes (0.1-0.8) 10^3/uL 1.31 H Absolute Eosinophils (0.0-0.7) 10^3/uL 0.04 Absolute Basophils (0.0-0.2) 10^3/uL 0.03 Sodium (136-145) mmol/L 135 L Potassium (3.5-5.1) mmol/L 3.0 L Chloride (98-107) mmol/L 100 Carbon Dioxide (21.0-32.0) mmol/L 20.6 L Anion Gap (3-11) mmol/L 14.4 H BUN (7-18) mg/dL 13 Creatinine (0.70-1.30) mg/dL 1.1 Est GFR (CKD-EPI 2020) (mL/min/1.73m2) 98.56 Glucose (74-106) mg/dL 148 H Calcium (8.5-10.1) mg/dL 9.5 Magnesium (1.8-2.4) mg/dL 1.1 L Total Bilirubin (0.2-1.0) mg/dL 1.2 H AST (15-37) U/L 22 ALT (16-63) U/L 16 Alkaline Phosphatase (46-116) U/L 56 Total Protein (6.4-8.2) g/dL 7.4 Albumin (3.4-5.0) g/dL 4.5 Lipase (16-77) U/L 17 Cancelled COVID-19 Source SARS-CoV-2 (PCR) (Negative) Influenza Type A (PCR) (Negative) Influenza Type B (PCR) (Negative) RSV (PCR) (Negative) Range/Units 02/02/23 11:25 WBC (4.4-10.8) 10^3/uL RBC (4.36-5.78) 10^6/uL Hgb (13.5-17.5) g/dL Hct (40.0-50.0) % MCV (80-95) fL MCH (27.0-33.0) pg MCHC (32.0-36.0) % RDW (11.8-14.1) % Plt Count (130-400) 10^3/uL MPV (8.0-11.0) fL Immature Gran % Neutrophils % Lymphocytes % Monocytes % Eosinophils % Basophils % Nucleated RBC % (0.0-0.3) % Absolute Neutrophils (1.2-6.7) 10^3/uL Absolute Lymphocytes (1.2-3.4) 10^3/uL Absolute Monocytes (0.1-0.8) 10^3/uL Absolute Eosinophils (0.0-0.7) 10^3/uL Absolute Basophils (0.0-0.2) 10^3/uL Sodium (136-145) mmol/L Potassium (3.5-5.1) mmol/L Chloride (98-107) mmol/L Carbon Dioxide (21.0-32.0) mmol/L Anion Gap (3-11) mmol/L BUN (7-18) mg/dL Creatinine (0.70-1.30) mg/dL Est GFR (CKD-EPI 2020) (mL/min/1.73m2) Glucose (74-106) mg/dL Calcium (8.5-10.1) mg/dL Magnesium (1.8-2.4) mg/dL Total Bilirubin (0.2-1.0) mg/dL AST (15-37) U/L ALT (16-63) U/L Alkaline Phosphatase (46-116) U/L Total Protein (6.4-8.2) g/dL Albumin (3.4-5.0) g/dL Lipase (16-77) U/L COVID-19 Source Nasopharynx SARS-CoV-2 (PCR) (Negative) Positive A Influenza Type A (PCR) (Negative) Negative Influenza Type B (PCR) (Negative) Negative RSV (PCR) (Negative) Negative Sign Out Sign Out Data: Sign Out Comment: Reassessed patient for disposition after completion of potassium IV supplementation. Last updated by Jaspreet Horton MD at 02/02/23 15:46 Discharge Plan Disposition Patient Disposition: Home Condition: Improving Discharge Details Clinical Impression: Nausea & vomiting, Hypomagnesemia, Acute hypokalemia, COVID-19 Primary Care Provider: Leticia Callejas ED Provider: Savanna Fernandez Home Meds and New Rx's Prescriptions: New ondansetron 4 mg tablet,disintegrating 4 mg PO Q8H PRNQty: 10 0RF Continued fluticasone propionate [Flonase Allergy Relief] 50 mcg/actuation spray,[place] spension 2 spray intranasal DAILY Qty: 16 12RF Rx Instructions: administer into each nostril albuterol sulfate [Ventolin HFA] 8 GM HFA aerosol inhaler 200 puff Inhalation Q4H PRN PRN epinephrine [EpiPen 2-Byron] 0.3 mg/0.3 mL Auto-Injector 0.3 mg IM ONCE Discharge Instructions Instructions: Hypokalemia (ED), Acute Nausea and Vomiting (ED), Hypomagnesemia (ED), COVID-19 (Coronavirus Disease 2019) (ED) Additional Instructions: Please drink small amounts of clear liquid (water or Gatorade) frequently in order to stay hydrated. Allow for bowel rest today. You may advance your diet slowly tonight and tomorrow to include bland foods (rice or crackers) and then advance slowly daily thereafter. Please contact your primary care physician to arrange follow-up. Return to the ER immediately for any worsening or new concerning symptoms. Referrals: Leticia Callejas MD [Primary Care Provider] - Discharge Data Discharge Date/Time-TO BE ENTERED AT DEPARTURE: 02/02/23 17:27
== END 2023-02-02 17:27 | disposition home or self-care (01) ==
PROVIDERS: Student in an Organized Health Care Education/Training Program; Emergency Provider Registered Nurse Emergency; PCP Family Medicine
DX: R11.2 Nausea with vomiting, unspecified (principal); R19.7 Diarrhea, unspecified; E83.42 Hypomagnesemia; E87.6 Hypokalemia; Z20.822 Contact with and (suspected) exposure to COVID-19
CPT/HCPCS: 80053; 83690; 87637; 96365; 96366; 96367; 99283; 83735; 85025; J1885; J2405; J3480

== ENCOUNTER 2023-04-29 10:38 | Outpatient (REF) | payer OTHER, SELFPAY | END 2023-04-29 10:39 | disposition home or self-care (01) | LOC: LBN 10:38 | PROVIDERS: PCP Family Medicine; Visit Provider Physician Assistant | DX: J02.9 Acute pharyngitis, unspecified (principal) | CPT/HCPCS: 87070 ==

== ENCOUNTER 2023-07-14 16:05 | Outpatient (REF) | payer OTHER, SELFPAY ==
[2023-07-14 21:21] LABS: Abs Immature Grans 0.05 10^3/uL (0.0-0.06); HGB 15.1 g/dL (13.5-17.5); MCH 30.2 pg (27.0-33.0); MCHC 34.3 % (32.0-36.0); MCV 88 fL (80-95); MPV 10.8 fL (8.0-11.0); Platelet Count 189 10^3/uL (130-400); RDW 11.9 % (11.8-14.1); RDW-SD 38.7 fL
[2023-07-14 21:36] LABS: ALT 18 U/L (16-63); AST 15 U/L (15-37); Albumin 4.7 g/dL (3.4-5.0); Alkaline Phosphatase 64 U/L (46-116); Anion Gap 12.6 mmol/L (3-11); BUN 12 mg/dL (7-18); Bilirubin, Total 0.9 mg/dL (0.2-1.0); CO2 26.4 mmol/L (21.0-32.0); Calcium 9.8 mg/dL (8.5-10.1); Chloride 101 mmol/L (98-107); Estimated GFR 109.81 (mL/min/1.73m2); Glucose 92 mg/dL (74-106); Potassium 3.7 mmol/L (3.5-5.1); Sodium 140 mmol/L (136-145); Total Protein 7.9 g/dL (6.4-8.2)
[2023-07-14 21:41] LABS: Absolute Lymphocyte Count 1.83 10^3/uL (1.2-3.4); Absolute Monocyte Count 1.97 10^3/uL (0.1-0.8); Atypical Lymphocytes % 2; Bands % 1
[2023-07-14 21:42] LABS: Diff Comment Diff Reviewed; RBC Morphology Normal
[2023-07-15 19:21] LABS: HIV-1/2 Ag & Ab Screen Negative (Negative)
[2023-07-16 09:17] LABS: HSV Type 1 Ab, IgG Negative (Negative); HSV Type 2 Ab, IgG Negative (Negative)
[2023-07-16 09:33] LABS: Syphilis Serology (RPR) Negative (Negative)
[2023-07-16 13:51] LABS: Chlamydia Result Negative (Negative); GC Result Negative (Negative)
== END 2023-07-14 16:06 | disposition home or self-care (01) ==
LOC: LBN 16:05
PROVIDERS: PCP Family Medicine; Visit Provider Nurse Practitioner Family
DX: J02.9 Acute pharyngitis, unspecified (principal); Z20.2 Contact with and (suspected) exposure to infections with a predominantly sexual mode of transmission; L98.9 Disorder of the skin and subcutaneous tissue, unspecified; Z11.3 Encounter for screening for infections with a predominantly sexual mode of transmission
CPT/HCPCS: 80053; 87389; 87491; 87591; 85025; 86592; 86695; 86696; 87070; 87205

== ENCOUNTER 2023-07-19 13:59 | Outpatient (REF) | payer OTHER, SELFPAY ==
[2023-07-19 21:13] LABS: ESR 16 mm/hr (0-15)
[2023-07-19 21:22] LABS: C-Reactive Protein 2.56 mg/dL (<or=0.5)
== END 2023-07-19 14:00 | disposition home or self-care (01) ==
LOC: LBN 13:59
PROVIDERS: PCP Family Medicine; Visit Provider Physician Assistant
DX: M35.2 Behcet's disease (principal); R79.82 Elevated C-reactive protein (CRP)
CPT/HCPCS: 85652; 86140

== ENCOUNTER 2023-07-26 13:30 | Outpatient (REF) | payer OTHER, SELFPAY ==
[2023-07-26 15:45] LABS: FREE T4 1.13 ng/dL (0.76-1.46); TSH 1.87 uIU/Ml (0.36-3.74)
[2023-07-26 23:33] LABS: HIV-1/2 Ag & Ab Screen Negative (Negative)
[2023-07-27 10:19] LABS: IgA 159 mg/dL (85-499)
[2023-07-27 10:40] LABS: Syphilis Serology (RPR) Negative (Negative)
[2023-07-27 14:57] LABS: Tissue Transglutaminase IgA <4.0 CU (<20.0)
== END 2023-07-26 13:31 | disposition home or self-care (01) ==
LOC: NCHCN 13:30
PROVIDERS: PCP Family Medicine; Visit Provider Family Medicine
DX: R21 Rash and other nonspecific skin eruption (principal); R63.4 Abnormal weight loss
CPT/HCPCS: 82784; 87389; 84439; 84443; 86592

== ENCOUNTER 2023-08-27 03:12 | Outpatient (CLI) | payer OTHER, SELFPAY ==
[2023-08-27 15:08] LABS: Abs Immature Grans 0.03 10^3/uL (0.0-0.06); Absolute Basophil Count 0.05 10^3/uL (0.0-0.2); Absolute Eosinophil Count 0.66 10^3/uL (0.0-0.7); Absolute Lymphocyte Count 1.34 10^3/uL (1.2-3.4); Absolute Monocyte Count 1.15 10^3/uL (0.1-0.8); Absolute Neutrophil Count 7.42 10^3/uL (1.2-6.7); Basophils % 0.5; Eosinophils % 6.2; HCT 44.5 % (40.0-50.0); HGB 15.7 g/dL (13.5-17.5); Immature Grans % 0.3; Lymphocytes % 12.6; MCH 30.9 pg (27.0-33.0); MCHC 35.3 % (32.0-36.0); MCV 88 fL (80-95); MPV 10.2 fL (8.0-11.0); Monocytes % 10.8; Neutrophils % 69.6; Platelet Count 212 10^3/uL (130-400); RBC 5.08 10^6/uL (4.36-5.78); RDW 12.5 % (11.8-14.1); RDW-SD 40.5 fL; WBC 10.65 10^3/uL (4.4-10.8)
[2023-08-27 15:09] LABS: ESR < 1 mm/hr (0-15)
[2023-08-27 16:04] LABS: ALT 21 U/L (16-63); AST 15 U/L (15-37); Albumin 4.6 g/dL (3.4-5.0); Alkaline Phosphatase 70 U/L (46-116); Anion Gap 9.8 mmol/L (3-11); BUN 11 mg/dL (7-18); Bilirubin, Total 0.6 mg/dL (0.2-1.0); C-Reactive Protein 0.72 mg/dL (<or=0.5); CO2 29.2 mmol/L (21.0-32.0); Chloride 105 mmol/L (98-107); Estimated GFR 109.81 (mL/min/1.73m2); Glucose 71 mg/dL (74-106); Potassium 3.7 mmol/L (3.5-5.1); Sodium 144 mmol/L (136-145)
[2023-08-28 10:43] LABS: HIV-1/2 Ag & Ab Screen Negative (Negative)
[2023-08-28 13:34] LABS: Chlamydia Result Negative (Negative); GC Result Negative (Negative)
[2023-08-30 09:32] LABS: HBs Antibody, Quant <3.1 mIU/mL (See Note); Hepatitis B Surface Ab Negative (See Note)
[2023-08-30 09:37] LABS: Hepatitis B Surface Ag Negative (Negative)
[2023-08-30 10:18] LABS: Hepatitis C Ab w Rflx HCV PCR Negative (Negative)
[2023-08-30 10:28] LABS: Hep B Core Antibody Negative (Negative)
[2023-08-30 10:36] LABS: Syphilis Serology (RPR) Negative (Negative)
[2023-08-30 11:19] LABS: HSV Type 1 Ab, IgG Positive (Negative); HSV Type 2 Ab, IgG Negative (Negative)
[2023-08-30 13:13] LABS: TB Interpretation Negative (Negative); TB1 Ag minus Nil 0.01 IU/ml
[2023-09-22 15:52] LABS: Misc Referral (MAYO) See Comments
== END 2023-08-27 03:13 | disposition home or self-care (01) ==
PROVIDERS: Internal Medicine; PCP Family Medicine; Visit Provider Student in an Organized Health Care Education/Training Program
DX: R21 Rash and other nonspecific skin eruption (principal); R63.4 Abnormal weight loss; N50.89 Other specified disorders of the male genital organs; K12.0 Recurrent oral aphthae
CPT/HCPCS: 36415; 80053; 81374; 85652; 86704; 86706; 86803; 87340; 87389; 87491; 87591; 85025; 86140; 86480; 86592; 86695; 86696

== ENCOUNTER 2023-09-12 18:07 | Emergency (ER) | payer OTHER, SELFPAY ==
[2023-09-12 18:14] VITALS: BP 119/73; PULSE 87; RESP 16; TEMP 36.9; O2SAT 98
--- NOTE | 2023-09-12 18:32 | ED.GENADUL_ITS ---
Discharge Plan Disposition Patient Disposition: Home Condition: Stable Discharge Details Clinical Impression: PCR DNA positive for HSV1, Possible exposure to STI Primary Care Provider: Leticia Callejas ED Provider: Savanna Fernandez Home Meds and New Rx's Prescriptions: New acyclovir 400 mg tablet 400 mg PO TID 7 Days Qty: 21 0RF Rx Instructions: Take 1 tablet 3 times a day for the next 7 days No Action fluticasone propionate [Flonase Allergy Relief] 50 mcg/actuation spray,suspension 2 spray intranasal DAILY Qty: 16 12RF Rx Instructions: administer into each nostril albuterol sulfate [Ventolin HFA] 8 GM HFA aerosol inhaler 200 puff Inhalation Q4H PRN PRN epinephrine [EpiPen 2-Byron] 0.3 mg/0.3 mL Auto-Injector 0.3 mg IM ONCE Discharge Instructions Instructions: Sexually Transmitted Diseases (ED), Oral Herpes Simplex Virus Infections (ED) Additional Instructions: You have been given antibiotics to cover for sexually transmitted diseases including gonorrhea and chlamydia. Will give you an antiviral for possible herpes infection. You did test positive for HSV 1 on your last lab work. The labs from today will take 2 to 3 days to return. Follow up with primary care provider in 3-5 days. Return to ED sooner if any worsening or concerns. Referrals: Leticia Callejas MD [Primary Care Provider] - 5 days Discharge Data Discharge Date/Time-TO BE ENTERED AT DEPARTURE: 09/12/23 19:27 HPI General Mode of arrival: ambulatory . Date/Time Provider Initiated Documentation: 09/12/23 18:16 . Limitations to Documentation: no limitations . Information obtained by: patient, RN notes reviewed and old records reviewed . HPI Narrative: 23-year-old male presents to the ER with a chief complaint of concern for STD. He reports that 2 weeks ago he had a new sexual partner and he has noticed a new lesion which is painful to his penis yesterday. He reports pain 5 out of 10. Denies any discharge or drainage. He was recently tested for HSV syphilis and hepatitis on August 26, everything was negative at that time. He is requesting additional testing due to the new lesion. Related Data Home Medications Medication Instructions Recorded Confirmed albuterol sulfate 90 mcg/actuation 200 puff inhalation Q4H PRN PRN 01/22/17 09/12/23 aerosol inhaler (Ventolin HFA) epinephrine 0.3 mg/0.3 mL 0.3 mg IM ONCE 12/24/19 09/12/23 injection, auto-injector (EpiPen 2-Byron) fluticasone propionate 50 2 spray intranasal DAILY #16 grams 12/02/22 09/12/23 mcg/actuation nasal spray,suspension (Flonase Allergy Relief) acyclovir 400 mg tablet 400 mg PO TID 7 days #21 tabs 09/12/23 Previous Rx's Medication Instructions Recorded fluticasone propionate 50 2 spray intranasal DAILY #16 grams 12/02/22 mcg/actuation nasal spray,suspension (Flonase Allergy Relief) acyclovir 400 mg tablet 400 mg PO TID 7 days #21 tabs 09/12/23 Allergies Allergy/AdvReac Type Severity Reaction Status Date / Time tree nut Allergy Severe Anaphylaxis Unverified 09/12/23 18:13 montelukast Allergy Intermediate Nausea Verified 09/12/23 18:13 amoxicillin Allergy Mild Nausea Verified 09/12/23 18:13 dog dander Allergy Mild Itching Verified 09/12/23 18:13 cats AdvReac Mild Itching Uncoded 09/12/23 18:13 General Stated Complaint: Male Reproductive Problem JESSICA: 5 Review of Systems All systems reviewed & are unremarkable except as noted in HPI and below Genitourinary Genitourinary: Reports as per HPI, Reports genital lesions, Denies dysuria, Denies penile discharge and Denies testicular pain Exam Male General Exam: Yes normal external exam Penis: vesicles (left side shaft) Meatus: meatus normal Scrotum: scrotum normal Testes: normal Course Vital Signs Vital signs: Vital Signs Temperature 36.9 C 09/12/23 18:14 Pulse 87 09/12/23 18:14 Respiratory Rate 16 09/12/23 18:14 Blood Pressure 119/73 09/12/23 18:14 Pulse Oximetry 98 09/12/23 18:14 Temperature 36.9 C 09/12/23 18:14 Temperature Source Temporal Artery Scan 09/12/23 18:14 Pulse 87 09/12/23 18:14 Respiratory Rate 16 09/12/23 18:14 Respiratory Effort Normal, Non-Labored 09/12/23 18:15 Blood Pressure 119/73 09/12/23 18:14 Blood Pressure Position Sitting 09/12/23 18:14 Pulse Oximetry 98 09/12/23 18:14 Oxygen Delivery Method Room Air 09/12/23 18:14 Oxygen Flow Rate 0 09/12/23 18:14 Pain Level 5 09/12/23 18:14 Medical Decision Making 23-year-old male presents to the ER with a chief complaint of concern for STD. He reports that 2 weeks ago he had a new sexual partner and he has noticed a new lesion which is painful to his penis yesterday. He reports pain 5 out of 10. Denies any discharge or drainage. He was recently tested for HSV syphilis and hepatitis on August 26, everything was negative at that time. He is requesting additional testing due to the new lesion. Differential diagnose includes but not limited to herpes, gonorrhea chlamydia, syphilis. GC chlamydia swab and HSV 1 and 2 swab ordered. Labs ordered including RPR. Will cover for gonorrhea chlamydia due to clinical presentation and history. Azithromycin 1 g and Rocephin IM ordered. Will also give acyclovir prescription for possible herpes outbreak. Patient is positive for herpes simplex type I. Patient reports that he did have oral sex and this could be from transmission from oral sex. Does have vesicular lesion noted on the left side of the shaft of his penis no open lesion or drainage noted. No other abnormality. This text was generated using [employer] dictation system, please disregard any oddities of phrase or misspellings. Quality:SDOH Health Related Social Needs: No Data to Display PFSH All Active Problems (Updated 09/12/23 @ 18:50 by Savanna Fernandez NP) Possible exposure to STI (Acute) PCR DNA positive for HSV1 (Acute) COVID-19 (Acute) Deviated nasal septum (Acute) Nasal obstruction (Acute) Hypertrophy of inferior nasal turbinate (Acute) Anterior open bite (Acute) Maxillary hypoplasia (Acute) Medical History History of tibial fracture Asthma, mild intermittent Allergic rhinitis Allergy to walnuts Jaw deformity Knee pain, right Pain, joint, shoulder, right Acquired deviated nasal septum History of traumatic fracture of vertebra No significant past medical history Surgical History H/O wisdom tooth extraction Social History Smoking/Tobacco Use Status: Never Smoking risk assessment performed?: Yes Alcohol Intake: never Drug use: Never Substance use type: marijuana Housing: apartment Do you feel safe at home: Yes Do you feel safe in your relationship?: Yes
[2023-09-12] MEDS: cefTRIAXone 1 GM VIAL (19:22)
[2023-09-12] MEDS: Azithromycin 250 MG TAB 1000 MG PO (19:24)
[2023-09-12 19:25] VITALS: BP 118/70; PULSE 80; RESP 19; O2SAT 99
--- NOTE | 2023-09-13 14:46 | NUR.NOTE ---
Patient called asking if his labs were resulted. THey are send outs and told pt to call back tomorrow or Wednesday. Nursing Note:
--- NOTE | 2023-09-14 04:51 | NUR.NOTE ---
Pt called in to see if results are in for labs.
[2023-09-14 10:36] LABS: Syphilis Serology (RPR) Negative (Negative)
[2023-09-14 15:48] LABS: Chlamydia Result Negative (Negative); GC Result Negative (Negative)
[2023-09-16 10:09] LABS: HSV 1 PCR, B Negative (Negative); HSV 2 PCR, B Negative (Negative)
== END 2023-09-12 19:27 | disposition home or self-care (01) ==
PROVIDERS: Emergency Provider Registered Nurse Emergency; PCP Family Medicine
DX: Z20.2 Contact with and (suspected) exposure to infections with a predominantly sexual mode of transmission (principal); N48.89 Other specified disorders of penis
CPT/HCPCS: 36415; 87491; 87529; 87591; 99283; 86592; J0696

== ENCOUNTER 2023-09-14 13:35 | Outpatient (REF) | payer OTHER, SELFPAY ==
--- NOTE | 2023-09-15 15:23 | NUR.NOTE ---
Nursing Note: Pt called looking for lab results that he had drawn yesterday. They were sent out and are still pending. The patient was notified of this and told to give us a call back in a few more days and they should be back.
[2023-09-16 13:45] LABS: HSV 1 DNA Result Positive (Negative); HSV 2 DNA Result Negative (Negative)
== END 2023-09-14 13:36 | disposition home or self-care (01) ==
LOC: LBN 13:35
PROVIDERS: PCP Family Medicine; Visit Provider Nurse Practitioner Family
DX: N48.89 Other specified disorders of penis (principal)
CPT/HCPCS: 87529

== ENCOUNTER 2023-11-26 22:14 | Emergency (ER) | payer OTHER, SELFPAY ==
[2023-11-26 22:27] VITALS: BP 123/74; PULSE 64; RESP 18; TEMP 36.8; O2SAT 100
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
[2023-11-26] MEDS: Bacitracin 30 GM TUBE TP (23:15)
[2023-11-26] MEDS: Ketorolac 15 MG/ML VIAL IM (23:16)
== END 2023-11-26 23:17 | disposition home or self-care (01) ==
PROVIDERS: Emergency Provider Student in an Organized Health Care Education/Training Program; PCP Family Medicine
DX: T24.231A Burn of second degree of right lower leg, initial encounter (principal); T31.0 Burns involving less than 10% of body surface; X03.8XXA Other exposure to controlled fire, not in building or structure, initial encounter; Y93.89 Activity, other specified
CPT/HCPCS: 99283; J1885

== ENCOUNTER 2024-02-09 18:32 | Outpatient (REF) | payer OTHER, SELFPAY ==
[2024-02-09 15:36] LABS: ESR < 1 mm/hr (0-15)
[2024-02-09 15:37] LABS: Abs Immature Grans 0.04 10^3/uL (0.0-0.06); Absolute Basophil Count 0.06 10^3/uL (0.0-0.2); Absolute Eosinophil Count 0.75 10^3/uL (0.0-0.7); Absolute Lymphocyte Count 2.71 10^3/uL (1.2-3.4); Absolute Monocyte Count 0.63 10^3/uL (0.1-0.8); Absolute Neutrophil Count 6.35 10^3/uL (1.2-6.7); Basophils % 0.6 %; Eosinophils % 7.1 %; HCT 43.7 % (40.0-50.0); HGB 14.7 g/dL (13.5-17.5); Immature Grans % 0.4 %; Lymphocytes % 25.7 %; MCH 30.4 pg (27.0-33.0); MCHC 33.6 % (32.0-36.0); MCV 91 fL (80-95); MPV 10.5 fL (8.0-11.0); Neutrophils % 60.2 %; Platelet Count 205 10^3/uL (130-400); RBC 4.83 10^6/uL (4.36-5.78); RDW 12.3 % (11.8-14.1); RDW-SD 40.7 fL; WBC 10.54 10^3/uL (4.4-10.8)
[2024-02-09 15:42] LABS: ALT 23 U/L (16-63); AST 16 U/L (15-37); Albumin 4.4 g/dL (3.4-5.0); Alkaline Phosphatase 60 U/L (46-116); Anion Gap 6.1 mmol/L (3-11); BUN 9 mg/dL (7-18); Bilirubin, Total 0.53 mg/dL (0.2-1.0); CO2 28.9 mmol/L (21.0-32.0); CREATININE 0.8 mg/dL (0.70-1.30); Calcium 9.1 mg/dL (8.5-10.1); Chloride 103 mmol/L (98-107); Estimated GFR 129.13 (mL/min/1.73m2); Glucose 96 mg/dL (74-106); Potassium 4.4 mmol/L (3.5-5.1); Sodium 138 mmol/L (136-145); Total Protein 7.5 g/dL (6.4-8.2)
[2024-02-09 15:46] LABS: C-Reactive Protein < 0.50 mg/dL (<or=0.5)
[2024-02-09 16:37] LABS: Epithelial Cells Rare HPF (Negative); Other Cells Few Spermatozoa (Negative); RBC 0-2 HPF (0-2); WBC 0-2 HPF (0-5)
[2024-02-09 16:38] LABS: Bacteria Negative HPF (Negative); C & S Indicated? No; Casts Negative LPF (Negative); Crystals Negative HPF (Negative); Mucus Negative (Negative)
[2024-02-14 09:58] LABS: Calprotectin 66.3 mcg/g
== END 2024-02-09 18:33 | disposition home or self-care (01) ==
LOC: NCHCN 18:32
PROVIDERS: PCP Family Medicine; Visit Provider Student in an Organized Health Care Education/Training Program
DX: K92.1 Melena (principal)
CPT/HCPCS: 80053; 85652; 81015; 82272; 83993; 85025; 86140